=== PATIENT | male | born 1955 | race Caucasian/White ===

== ENCOUNTER 2017-06-20 18:21 | Emergency (ER) | payer SELFPAY ==
[2017-06-20] MEDS ORDERED: Sodium Chloride 0.9% 10 ML Syringe FLUSH PRN (18:28)
[2017-06-20] MEDS ORDERED: Lactated Ringers 1,000 ML IV SCH (18:30)
[2017-06-20] MEDS ORDERED: HYDROmorphone 0.5 MG/0.5 ML Syringe IVPUSH ONE (18:31)
[2017-06-20] MEDS ORDERED: Iopamidol 612 MG/ML 150 ML Bottle IVPUSH ONE (18:46)
[2017-06-20] MEDS ORDERED: Sodium Chloride 0.9% 10 ML Syringe FLUSH ONE (18:46)
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
[2017-06-20] MEDS ORDERED: Sodium Chloride 0.9% 500 ML ONE (19:25)
[2017-06-20 19:27] VITALS: BP 100/61
--- NOTE | 2017-06-21 06:50 | CR ---
Left shoulder: Two views of the left shoulder were obtained. Comparison: No previous shoulder study. Mild degenerative change seen within the acromioclavicular joint with joint space narrowing and inferior spurring. Glenohumeral joint appears within normal limits. Left-sided rib fractures partially seen. No acute fracture or other abnormality is appreciated. Impression: 1. Degenerative change within the acromioclavicular joint. 2. Left-sided rib fractures are partially seen. 3. Nothing acute is otherwise identified on two-view left shoulder study. Diagnostic code #3
--- NOTE | 2017-06-21 06:50 | CT ---
Head CT Technique: Multiple axial sections through the brain were obtained. Intravenous contrast was not utilized. Comparison: No previous intracranial imaging. Findings: Ventricles along with basal cisterns and sulci over the convexities are within normal limits for the patient's age. No abnormal parenchymal densities are seen. No evidence of intracranial hemorrhage. No midline shift or mass effect is seen. Bone window settings were reviewed which shows no discrete calvarial abnormality. Mild mucosal thickening noted within both inferior maxillary sinuses which appears pre-existing. Impression: 1. Sinus finding felt to be chronic. 2. No acute intracranial abnormality is identified. Diagnostic code #2 I agree with preliminary report issued by [facility] ([facility] report finalized on 06/20/17, 8:00 PM Central Time)
--- NOTE | 2017-06-21 06:50 | CT ---
CT cervical spine Technique: Multiple axial sections were obtained from above C1 inferiorly through the bottom of T1. Reconstructed sagittal and coronal images were reviewed. Comparison: No previous cervical spine imaging is available. Findings: Degenerative change noted between the dens and anterior arch of C1. Moderate disc space narrowing noted at C5-C6. Posterior osteophyte seen at C5-C6 as well as large anterior osteophytes. Smaller anterior osteophytes noted at C4-C5 and C6-C7 as well as C7-T1 and T1-T2. Mild scattered degenerative apophyseal change is seen. Mucosal thickening seen inferiorly within both maxillary sinuses. Mastoid sinuses and middle ear cavities are clear. Posterior skull base is intact as seen. Mild bilateral neural foraminal stenosis noted at C5-C6. Vertebral bodies and posterior arches are intact with no fracture being seen. No abnormal subluxation is seen. Degenerative spurring noted within the uncovertebral joints at C5-C6. Impression: 1. Degenerative change as described above. 2. Nothing acute is appreciated on CT study of the cervical spine. Diagnostic code #2 I agree with preliminary report issued by [facility] ([facility] report finalized on 06/20/17, 8:05 PM Central Time)
--- NOTE | 2017-06-21 07:09 | CR ---
Left knee: Four views of the left knee were obtained. Spurring noted at the attachment of the quadriceps tendon to the patella. Medial and lateral joint spaces are preserved. Cyst noted at the base of the tibial spines. There is a calcification being seen within the anterior joint compatible with loose body. No joint effusion is seen. No acute fracture or other bony abnormality is identified. Impression: 1. Degenerative change as noted above. Nothing acute is identified on left knee exam. Diagnostic code #2
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
== END 2017-06-20 19:35 ==
LOC: JD.ED 18:21
DX: S22.42XA Multiple fractures of ribs, left side, initial encounter for closed fracture (principal); S22.080A Wedge compression fracture of T11-T12 vertebra, initial encounter for closed fracture; S22.069A Unspecified fracture of T7-T8 vertebra, initial encounter for closed fracture; S36.039A Unspecified laceration of spleen, initial encounter; S40.012A Contusion of left shoulder, initial encounter; S80.02XA Contusion of left knee, initial encounter; S00.81XA Abrasion of other part of head, initial encounter; S30.811A Abrasion of abdominal wall, initial encounter; V29.88XA Motorcycle rider (driver) (passenger) injured in other specified transport accidents, initial encounter; Y92.410 Unspecified street and highway as the place of occurrence of the external cause
CPT/HCPCS: 36415; 70450; 71260; 72125; 73030; 73564; 74177; 80053; 83690; 85025; 86850; 86900; 86901; 86922; 96361; 96374; 99285; 99291; G0480; J1170; J7050; J7120; P9016; Q9967

== ENCOUNTER 2023-12-11 12:59 | Day surgery (SDC) | payer SELFPAY ==
[2023-12-11] MEDS ORDERED: Sodium Chloride 0.9% 10 ML Syringe FLUSH SCH (13:15)
[2023-12-11] MEDS ORDERED: Lactated Ringers 1,000 ML IV SCH (13:15)
[2023-12-11] MEDS ORDERED: Bupivacaine 0.25% 10 ML SDV ONE ×2 (13:42→13:59)
[2023-12-11] MEDS ORDERED: EPINEPHrine 1 MG/ML SDV ONE (13:42)
[2023-12-11] MEDS ORDERED: Lidocaine 1% 20 ML MDV ONE (13:42)
[2023-12-11] MEDS ORDERED: ceFAZolin 2 GM Vial ONE (14:20)
[2023-12-11] MEDS ORDERED: Propofol 200 MG/20 ML SDV ONE (14:21)
[2023-12-11] MEDS ORDERED: Midazolam 1 MG/ML 2 ML SDV ONE (14:21)
[2023-12-11] MEDS ORDERED: fentaNYL 100 MCG/2 ML SDV ONE ×2 (14:21→15:28)
[2023-12-11] MEDS ORDERED: Lidocaine 2% 5 ML SDV ONE (14:28)
[2023-12-11] MEDS ORDERED: Rocuronium 50 MG/5 ML Vial ONE (14:43)
[2023-12-11] MEDS ORDERED: Dexamethasone 4 MG/ML 5 ML MDV ONE (14:43)
[2023-12-11] MEDS ORDERED: Succinylcholine 200 MG/10 ML MDV ONE (14:43)
[2023-12-11] MEDS ORDERED: Bacitracin Oint 15 GM Tube ONE (15:24)
[2023-12-11] MEDS ORDERED: Neostigmine Methylsulfate 10 MG/10 ML MDV ONE (15:30)
[2023-12-11] MEDS ORDERED: fentaNYL 100 MCG/2 ML SDV IVPUSH PRN (16:04)
[2023-12-11] MEDS ORDERED: Ondansetron 4 MG/2 ML SDV IVPUSH PRN (16:04)
[2023-12-11] MEDS ORDERED: HYDROmorphone 0.5 MG/0.5 ML Syringe IVPUSH PRN (16:04)
[2023-12-11 17:13] VITALS: PULSE 61
[2023-12-11 17:28] VITALS: BP 119/69
== END 2023-12-11 17:23 | disposition home or self-care (01) ==
LOC: JD.SDS 12:59
PROVIDERS: ATTEND Specialist
DX: L02.11 Cutaneous abscess of neck (principal); F41.9 Anxiety disorder, unspecified; M06.9 Rheumatoid arthritis, unspecified; L40.9 Psoriasis, unspecified; F17.200 Nicotine dependence, unspecified, uncomplicated; R06.9 Unspecified abnormalities of breathing; Z79.899 Other long term (current) drug therapy
CPT/HCPCS: 11426; 93005; A9270; J0171; J0330; J0690; J1100; J2250; J2704; J2710; J3010; J3490; J7120